=== PATIENT | female | born 1950 | race Caucasian/White ===

== ENCOUNTER 2017-08-01 10:33 | Outpatient (CLI) | payer MEDICARE ==
--- NOTE | 2017-08-01 12:17 | CT ---
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 COMPARISON: 08/02/2016 FINDINGS: There is redemonstration of a left pneumonectomy. There is mild residual pleural-based density of th e small volume postoperative left hemithorax again seen. There is leftward shift of the mediastinal contents redemonstrated. No new mass, consolidation, or suspicious nodule of the right lung. No richard dence of a right-sided effusion or pneumothorax. Vascular calcification is present. There is stable prominent volume of the pulmonary arterial system. Streak artifact from bilateral shoulder prosthes es does markedly limit visualization of the upper chest. Prominent levoscoliosis of the imaged thora columbar spine, with associated degenerative change, is present. IMPRESSION: 1. No interval development of metastatic disease. 2. Punctate nodularity of the subpleura of the right lower lobe is stable. POS: [facility]
[2017-08-01] MEDS ORDERED: Iopamidol 370 76% 100 ML VIAL ONE (14:46)
== END 2017-08-01 10:34 | disposition home or self-care (01) ==
LOC: CT 10:33
PROVIDERS: ATTEND Internal Medicine Hematology & Oncology
DX: C34.12 Malignant neoplasm of upper lobe, left bronchus or lung (principal)
CPT/HCPCS: 71260; 82565

== ENCOUNTER 2017-11-20 08:26 | Day surgery (SDC) | payer MEDICARE ==
[~2017-11-20 08:26] MED LIST: Prevnar 13-Val Conj/PF 0.5 ML SYRINGE IM ONE
[2017-11-20 09:29] VITALS: BP 154/86; TEMP 97.8
--- NOTE | 2017-11-20 12:13 | CT ---
CT LUMBAR MYELOGRAM: Indication: Severe thoracolumbar scoliosis with low back pain. Technique: Informed consent was obtained. Pre procedure evaluation was made of the patient's CT of the thorax da le 08-01-17 identifying a fairly prominent thoracolumbar scoliotic curve with multilevel degenerative disease. It was then determined that the patient would best be suited to undergo lumbar myelogram und er CT guidance rather than fluoroscopic guidance. Informed consent was obtained. The patient was placed prone on the CT gantry table. Pre procedure CT images were obtained for guiding purposes only. Site overlying the left L5-S1 level with marked and s ite was prepped and draped in the usual sterile fashion. Buffered 1% Lidocaine was administered to ov erlying subcutaneous tissues. A 22 gauge spinal needle was guided through the left L5-S1 interlaminar space. The needle was positioned within the thecal sac. There was spontaneous return of normal appea ring CSF fluid. There is opacification of the thecal sac with administration of 12 cc of Isovue 200 M . Inter stylet was placed and needle was removed. Site was cleaned and bandaged. The patient tolerate d the injection without difficulty. FINDINGS: 1. There is prominent levoscoliosis of the thoracolumbar spine with severe multilevel disc degenerati ve facet osteoarthritic change. Please see the separately dictated CT lumbar myelogram for full detai l. 2. There are mild vascular calcifications involving the abdominal aorta. There is a moderate amount o f retained stool within the colon. There is a few scattered areas of diverticula involving the colon. IMPRESSION: Successful CT guided lumbar myelogram. POS: [facility]
== END 2017-11-20 11:05 | disposition home or self-care (01) ==
LOC: RAD 08:26
PROVIDERS: ATTEND Neurological Surgery
PROC: B02B1ZZ Computerized Tomography (CT Scan) of Spinal Cord using Low Osmolar Contrast (ICD-10-PCS; principal; 2017-11-20)
DX: M41.85 Other forms of scoliosis, thoracolumbar region (principal); M54.5 Low back pain; J44.9 Chronic obstructive pulmonary disease, unspecified; K21.9 Gastro-esophageal reflux disease without esophagitis; M85.80 Other specified disorders of bone density and structure, unspecified site; F41.9 Anxiety disorder, unspecified; K58.9 Irritable bowel syndrome, unspecified; Z79.899 Other long term (current) drug therapy; Z88.8 Allergy status to other drugs, medicaments and biological substances; Z88.5 Allergy status to narcotic agent
CPT/HCPCS: 72132; 77002

== ENCOUNTER 2018-08-14 08:34 | Outpatient (CLI) | payer MEDICARE ==
--- NOTE | 2018-08-14 10:32 | CT ---
EXAM: CT Chest WO Con PROVIDED CLINICAL HISTORY: Malignant neoplasm of upper lobe left bronchus. History of left lung cancer post pneumonectomy. COMPARISON: 08/01/2017 FINDINGS: Postoperative changes of left pneumonectomy are again noted with shift of the mediastinal structures to the left. Small residual loculated pleural fluid collection on the left is again seen. A small pulmonary nodule measuring 5 mm in the anterior aspect right middle lobe is again present and stable in size compared to the prior study. Pleural-based nodular density measuring 6 mm anterolateral right lung base is again seen and stable compared to prior exam. No new or additional p ulmonary nodule is seen on the right. There is no pleural effusion seen. Central and right main pulmonary artery remain prominent in size. Vascular calcifications are again s een in the thoracic aorta. Left convex scoliosis thoracolumbar spine is again seen with prominent degenerative changes at the le clement of the scoliotic curvature. No lytic or sclerotic osseous lesions are seen. Bilateral glenohumeral prostheses are again seen. Postsurgical changes related to posterior cervical fusion are seen. IMPRESSION: 1. Stable postsurgical changes related to left pneumonectomy with shift of mediastinal structures to the left. 2. Stable pulmonary nodule right middle lobe and pleural-based pulmonary nodule right lower lobe.
== END 2018-08-14 08:35 | disposition home or self-care (01) ==
LOC: CT 08:34
PROVIDERS: ATTEND Internal Medicine Hematology & Oncology
DX: C34.12 Malignant neoplasm of upper lobe, left bronchus or lung (principal); R91.8 Other nonspecific abnormal finding of lung field; Z90.2 Acquired absence of lung [part of]
CPT/HCPCS: 71250

== ENCOUNTER 2019-09-30 | Outpatient (CLI) | payer MEDICARE | END 2019-09-30 08:44 | disposition home or self-care (01) | DX: C34.12 Malignant neoplasm of upper lobe, left bronchus or lung (principal); R91.8 Other nonspecific abnormal finding of lung field; Z90.2 Acquired absence of lung [part of] ==

== ENCOUNTER 2020-02-10 08:58 | Outpatient (CLI) | payer MEDICARE, OTHER ==
--- NOTE | 2020-02-10 16:24 | RAD ---
XR Chest Pa Lat STANDARD HISTORY: Preoperative evaluation COMPARISON: 01/13/2016 FINDINGS: Changes of left-sided pneumonectomy with hyperexpansion of the right lung and mediastinal s hift to the left are again seen. No focal areas of consolidation, pneumothoraces or pleural effusion is seen on the right side. There are postop changes of bilateral shoulder arthroplasties. IMPRESSION: Stable exam. No acute process
[2020-02-10 18:00] LABS: #Eosinphils 0.1 thou/uL (0.0-0.7); #Lymphocytes 1.1 thou/uL (1.20-3.40); #Monocytes 0.4 thou/uL (0.11-0.59); #Neutrophils 1.8 thou/uL (1.40-6.50); %Basophils 0.9 % (0.0-1.0); %Eosinophils 3.7 % (0.0-10.0); %Lymphocytes 30.9 % (21.0-51.0); %Monocytes 12.5 % (0.0-10.0); %Neutrophils 51.9 % (42.0-75.0); Hemoglobin 14.3 g/dL (12.0-16.0); Mean Corpuscular HGB CONC 32.3 g/dL (32.0-36.0); Mean Corpuscular Hemoglobin 29.4 pg (27.0-31.0); Mean Corpuscular Volume 90.9 fL (78.0-98.0); Mean Platelet Volume 10.4 fL (7.4-10.4); Platelet Count 144 thou/uL (130-400); Red Blood Cell (RBC) Count 4.88 mill/uL (4.20-5.40); White Blood Cell (WBC) Count 3.5 thou/uL (4.8-10.8)
[2020-02-10 18:05] LABS: INR-International Normal Ratio 1.1; Prothrombin Time 14.9 sec (12.0-14.7)
[2020-02-10 21:13] LABS: Anion Gap 17 mmol/L (10-20); BUN (Urea Nitrogen) 18 mg/dL (9.8-20.1); Calc. Creatinine Clearance 0 mL/min (70-130); Calcium 9.6 mg/dL (7.8-10.44); Carbon Dioxide 25 mmol/L (23-31); Chloride 104 mmol/L (98-107); Estimated GFR-MDRD 46; Glucose 88 mg/dL (83-110); Potassium 4.7 mmol/L (3.5-5.1); Sodium 141 mmol/L (136-145)
--- NOTE | 2020-02-11 09:07 | EKG ---
Test Reason : Blood Pressure : / mmHG Vent. Rate : 075 BPM Atrial Rate : 075 BPM P-R Int : 124 ms QRS Dur : 110 ms QT Int : 354 ms P-R-T Axes : 111 085 096 degrees QTc Int : 395 ms Normal sinus rhythm Incomplete right bundle branch block Borderline ECG Confirmed by DR. Nery MÉNDEZ ([id number]) on 02/11/2020 9:06:48 AM Referred By: Confirmed By:DR. Nery MÉNDEZ
[2020-02-12 12:10] LABS: SARS-CoV-2 MS2 Positive; SARS-CoV-2 N Gene Negative; SARS-CoV-2 S Gene Negative; SARS-CoV-2 by NAA Not Detected (NotDetected); SARS-CoV-2 orf1ab Negative
== END 2020-02-10 08:59 | disposition home or self-care (01) ==
LOC: LABBT 08:58 → SCSRAD 08:59
PROVIDERS: ATTEND Orthopaedic Surgery
DX: Z01.818 Encounter for other preprocedural examination (principal); Z20.828 Contact with and (suspected) exposure to other viral communicable diseases; M77.12 Lateral epicondylitis, left elbow; G56.02 Carpal tunnel syndrome, left upper limb; G56.22 Lesion of ulnar nerve, left upper limb
CPT/HCPCS: 71046; 80048; 85025; 85610; 87635; 93005; 93010; U0003

== ENCOUNTER 2020-02-14 11:34 | Day surgery (SDC) | payer MEDICARE ==
[2020-02-13 13:57] VITALS: BMI 29.5
[2020-02-14] MEDS ORDERED: Fentanyl 100 MCG/2 ML VIAL ONE (11:41)
[2020-02-14] MEDS ORDERED: Dexamethasone 20 MG/5 ML VIAL ONE (11:53)
[2020-02-14] MEDS ORDERED: Lidocaine 1% PF 5 ML VIAL ONE (11:53)
[2020-02-14] MEDS ORDERED: Ondansetron PF 4 MG/2 ML Vial ONE (11:53)
[2020-02-14] MEDS ORDERED: PROPOFOL 200 MG/20 ML VIAL ONE (11:53)
[2020-02-14] MEDS ORDERED: Bupivacaine HCl 0.5%/Epinephrine 1:200,000/PF 30 ml Vial ONE (12:31)
[2020-02-14] MEDS ORDERED: Lidocaine 1% w/Epinephrine 1:100K 20 ML VIAL ONE (12:31)
--- NOTE | 2020-02-14 17:21 | HP ---
PRESENTING DIAGNOSES: Left elbow pain and left wrist pain. HISTORY OF PRESENT ILLNESS: Ms. Domínguez is a 69-year-old female with history of multiple medical problems, presents with left elbow pain with radiation to her fingers, numbness and tingling both ulnar and radially. The patient has pain laterally consistent with cubital tunnel, carpal tunnel, and tennis elbow. She has received injections, failed conservative measures, and would like to proceed with the procedure. PAST MEDICAL HISTORY: COPD, malignant neoplasm, IBS, allergies rhinitis, reflux, chronic pain, osteoarthritis, anxiety. PAST SURGICAL HISTORY: Hysterectomy, shoulder replacement, pneumonectomy, colonoscopy, . MEDICATIONS: Please see attached list for full list. ALLERGIES: LATEX, AZITHROMYCIN, LEVOFLOXACIN, LISINOPRIL, LOSARTAN, TRAMADOL. SOCIAL HISTORY: The patient is a former smoker. Son is at bedside. The patient is retired. PHYSICAL EXAMINATION: GENERAL: Alert and oriented female in no acute distress. MUSCULOSKELETAL: Swelling and tenderness to palpation in lateral epicondyle. Pain with wrist extension. She has sensation diminished in the medial and ulnar distribution. She has positive Tinel. She has positive Phalen. ASSESSMENT: Lateral epicondylitis, cubital tunnel and carpal tunnel. PLAN: The patient will receive an LMA per Anesthesia of a left cubital tunnel, carpal tunnel, and tennis elbow release at the same time. The patient will receive localized injection. I discussed the risks and benefits of surgery. The and patient family elected to proceed. She received clearance from Cardiology to proceed with the procedures as above. Job ID: [id number]
--- NOTE | 2020-02-14 18:26 | OP ---
DATE OF PROCEDURE: 02/14/2020 PREOPERATIVE DIAGNOSES: 1. Left carpal tunnel syndrome. 2. Left cubital tunnel syndrome. 3. Left tennis elbow. PROCEDURES PERFORMED: 1. Open left carpal tunnel release. 2. Open cubital tunnel release. 3. Open tennis elbow release. WILDLIFE BIOLOGIST: None. ANESTHESIOLOGIST: Toney Butts M.D. ANESTHESIA: The patient received an LMA. ESTIMATED BLOOD LOSS: Less than 30 mL. TOURNIQUET TIME: 45 minutes at 250 mmHg. INJECTIONS: 20 mL of 0.25% Marcaine with epinephrine. ANTIBIOTICS: Ancef 2 g. COMPLICATIONS: None. HISTORY OF PRESENT ILLNESS: Ms. Domínguez is a 69-year-old female with multiple problems of her left upper extremity to include carpal tunnel, cubital tunnel, tennis elbow as well as CMC arthritis. We discussed the risks and benefits of carpal tunnel, cubital release, and tennis elbow release in same setting. She understood the risks and benefits to include pain, scar, bleeding, infection, damage to vital structures, decreased range of motion and strength, continued pain despite surgical intervention, failure of procedure, and loss of life or limb. The patient and family understood the risks and benefits of the procedure and would like to proceed. Time-out was performed, designating the patient's left upper extremity as the operative site based on site, consents, and marking for, 1. Carpal tunnel release. 2. Tennis elbow release. 3. Cubital tunnel release. The patient would like to proceed. DESCRIPTION OF PROCEDURE: Procedure #1: After time-out was performed designating the patient's left upper extremity as the operative site based on site, consents, and marking, the tourniquet was brought up and left up for a total of 45 minutes throughout the entirety of all 3 cases. We made an incision proximal to Marley's cardinal line and distal to flexor crease down through the skin over the fourth ray, came down through skin, and blunt dissected down the palmar fascia. I used a hemostat and placed it under the palmar fashion, dissected the nerve through the palmaris brevis and through the transverse carpal ligament. I ensured proximally that it was completely released, so there was no tension, using scissors proximally to release the transverse carpal ligament. I washed. Being happy with this, I closed with 3-0 nylon horizontal mattress sutures. After I injected preprocedure about 2 mL of Marcaine 0.25% and postprocedure injected about 3 mL of 0.25% Marcaine with epinephrine in carpal tunnel. Procedure #2: I moved to the left lateral elbow for lateral epicondylitis. I injected about 2 mL preprocedure. I made a lateral incision down through skin, came down on the patient's lateral epicondyle, created a fascial rent in the fascia to come down onto lateral condyle, ensured that the extensor carpi radialis brevis was released in its entirety, debrided off the lateral epicondyle, saw the anterior joint line, taking out portion of the tendon distally, made sure that the collateral ligament was left in place, went proximally ensured to release a portion of the longus and a little of the brachialis. I washed. Being happy with that, I closed the deep plane with 2-0 Vicryl. I injected below with about 3 or more mL. Then, I closed subcu with 2-0 and skin with 3-0 nylon, and I injected subcu again for a total of about 7 or 8 mL in the elbow laterally with 0.25% Marcaine. Procedure #3: After this, I moved medially, dissected over the patient's distal, lateral, and medial epicondyles, palpating the skin and the nerve on the medial border of the triceps down through skin. I used blunt dissection, came down and find the nerve. I had decompressed the Russell fascia, moved distally and ensured that it was completely released. I made sure the fascial band was released distally as well as tje intermuscular septum was not tenting the nerve. The nerve was completely decompressed. I washed and closed the skin with 2-0 nylon. I injected the remaining about 8 mL for a total of 20 into the elbow on the medial aspect. I placed the patient in a long posterior splint. The patient will remain in a splint for 7 days to allow the skin to heal. She will begin range of motion in about a week and I will see her back in about 2 weeks to remove sutures. Job ID: [id number] [facility]
== END 2020-02-14 15:45 | disposition home or self-care (01) ==
LOC: SDC 11:34
PROVIDERS: ATTEND Orthopaedic Surgery
PROC: 01N50ZZ Release Median Nerve, Open Approach (ICD-10-PCS; principal; 2020-02-14)
PROC: 01N40ZZ Release Ulnar Nerve, Open Approach (ICD-10-PCS; 2020-02-14)
DX: M77.12 Lateral epicondylitis, left elbow (principal); G56.22 Lesion of ulnar nerve, left upper limb; G56.02 Carpal tunnel syndrome, left upper limb; M19.90 Unspecified osteoarthritis, unspecified site; J44.9 Chronic obstructive pulmonary disease, unspecified; K58.9 Irritable bowel syndrome, unspecified; K21.9 Gastro-esophageal reflux disease without esophagitis; F41.9 Anxiety disorder, unspecified; Z79.899 Other long term (current) drug therapy; Z87.891 Personal history of nicotine dependence; Z88.1 Allergy status to other antibiotic agents; Z88.5 Allergy status to narcotic agent; Z88.8 Allergy status to other drugs, medicaments and biological substances; Z91.040 Latex allergy status
CPT/HCPCS: J0690; J1100; J2405; J2704; J3010